=== PATIENT | female | born 1970 | race Caucasian/White ===

== ENCOUNTER 2019-11-01 19:58 | Observation (INO) | payer BC ==
--- NOTE | 2019-11-01 21:05 | EDM.PDOC ---
ED HPI GENERAL MEDICAL PROBLEM - General Chief Complaint: Neurological Problem Stated Complaint: MED[facility] Time Seen by Provider: 11/01/19 20:15 Source of Information: Reports: Patient, Family History Limitations: Reports: No Limitations - History of Present Illness INITIAL COMMENTS - FREE TEXT/NARRATIVE: This is a 48-year-old female who presents with concerns of altered mental status. She was significant dinner table with her when she felt an odd sensation in her mouth and started out the window, her said she was less responsive during this time but then started talking again for a couple minutes. However she then progressed to have about 3 minutes of altered mentation associated with increased tone of all extremities. This was followed by a period of confusion which lasted approximately 10 minutes before slowly clearing. She also lost continence. She had no generalized myoclonic movements. She has no history of seizure disorder. She denies any sleep deprivation. She has been decreasing her alcohol intake, and noticed that she is occasionally tremulous (one bottle daily to several glasses). She feels normal now. She reports no history of stroke, but does say that she believes she had some carotid calcification that was picked up on plain films during a trauma work-up. She has follow up planned for this. - Related Data Allergies Allergy/AdvReac Type Severity Reaction Status Date / Time No Known Allergies Allergy Verified 11/01/19 20:02 Home Meds: Home Meds Chlorthalidone 25 mg PO DAILY 11/01/19 [History] Labetalol [Normodyne] 200 mg PO BID 11/01/19 [History] Past Medical History Cardiovascular History: Reports: Hypertension - Past Surgical History Other Cardiovascular Surgeries/Procedures: is supposed to have a carotid duplex in [place] Social & Family History - Family History Family Medical History: Noncontributory - Tobacco Use Smoking Status *Q: Never Smoker - Caffeine Use Caffeine Use: Reports: Soda Other Caffeine Use: diet coke - Alcohol Use Days Per Week of Alcohol Use: 7 Number of Drinks Per Day: 1 Total Drinks Per Week: 7 - Recreational Drug Use Recreational Drug Use: No ED ROS GENERAL - Review of Systems Review Of Systems: See Below Constitutional: Reports: No Symptoms HEENT: Reports: No Symptoms Respiratory: Reports: No Symptoms Cardiovascular: Reports: No Symptoms Endocrine: Reports: No Symptoms GI/Abdominal: Reports: No Symptoms : Reports: No Symptoms Musculoskeletal: Reports: No Symptoms Skin: Reports: No Symptoms Neurological: Reports: Confusion, Seizure. Denies: Headache, Numbness, Difficulty Walking, Weakness Psychiatric: Reports: No Symptoms Hematologic/Lymphatic: Reports: No Symptoms Immunologic: Reports: No Symptoms - Physical Exam Exam: See Below Exam Limited By: No Limitations General Appearance: Alert, No Apparent Distress Ears: Normal External Exam Nose: Normal Inspection Throat/Mouth: Normal Inspection Head Exam: Atraumatic, Normocephalic Neck: Normal Inspection Respiratory/Chest: No Respiratory Distress, Lungs Clear GI/Abdominal: Soft, Non-Tender Neuro Exam (Abbreviated): Alert, Oriented, CN II-XII Intact, Normal Cognition, Normal Gait, Other (Speech is fluid, smile symmetric, extremity strength is 5/5 and symmetric. Finger-nose testing intact.). No: Sensory/Motor Deficit Back Exam: Normal Inspection Extremities: Normal Inspection Psychiatric: Normal Affect, Normal Mood Skin Exam: Warm, Dry Course - Vital Signs Last Recorded V/S: Last Vital Signs Temp 35.7 C L 11/01/19 20:12 Pulse 78 11/01/19 20:12 Resp 13 11/01/19 20:12 BP 164/86 H 11/01/19 20:12 Pulse Ox 98 11/01/19 20:12 - Orders/Labs/Meds Orders: Active Orders 24 hr Category Date Time Status Patient Status Manage Transfer [TRANSFER] Routine ADT 11/01/19 22:09 Active Peripheral IV Care [RC] . DIRECTED Care 11/01/19 21:47 Ordered Sodium Chloride 0.9% [Normal Saline] 1,000 ml Med 11/01/19 22:00 Active IV ASDIRECTED Sodium Chloride 0.9% [Saline Flush] Med 11/01/19 21:47 Ordered 10 ml FLUSH ASDIRECTED PRN Peripheral IV Insertion Adult [OM.PC] Routine Oth 11/01/19 21:47 Ordered Resuscitation Status Routine Resus Stat 11/01/19 22:12 Ordered Medication Orders Sodium Chloride (Normal Saline) 1,000 mls @ 100 mls/hr IV ASDIRECTED RAJIV Last Admin: 11/01/19 21:47 Dose: 100 mls/hr Sodium Chloride (Saline Flush) 10 ml FLUSH ASDIRECTED PRN PRN Reason: Keep Vein Open Labs: Laboratory Tests 11/01/19 Range/Units 20:41 Sodium 121 L (140-148) mmol/L Potassium 4.4 (3.6-5.2) mmol/L Chloride 84 L (100-108) mmol/L Carbon Dioxide 26 (21-32) mmol/L Anion Gap 15.4 H (5.0-14.0) mmol/L BUN 11 (7-18) mg/dL Creatinine 0.8 (0.6-1.0) mg/dL Est Cr Clr Drug Dosing 70.05 mL/min Estimated GFR (MDRD) > 60 (>60) Glucose 111 H (74-106) mg/dL Calcium 9.2 (8.5-10.1) mg/dL Meds: Medications Generic Name Dose Route Start Last Admin Trade Name Freq PRN Reason Stop Dose Admin Sodium Chloride 1,000 mls @ 100 mls/hr 11/01/19 22:00 11/01/19 21:47 Normal Saline IV 100 mls/hr ASDIRECTED RAJIV Administration Sodium Chloride 10 ml 11/01/19 21:47 Saline Flush FLUSH ASDIRECTED PRN Keep Vein Open - Re-Assessments/Exams Free Text/Narrative Re-Assessment/Exam: This is a 48-year-old woman who presents with concerns of altered mentation consistent with likely seizure. She reports a clear history of postictal state as well as urinary incontinence. On exam now she has normal vital signs. She is completely neurologically intact. Trigger is not clear, but perhaps related to decreased alcohol use. She currently is without any signs of withdrawal. We discussed being careful about how quickly she tapers off her alcohol use and seeking out treatment. She was recently started on a diuretic, we will check some electrolytes but with her normal mentation now unlikely this is the cause. Her blood sugar was normal for EMS. Anticipate discharge, no role for antiepileptic at this time for this first- time generalized seizure. 11/01/19 21:06 11/01/19 21:09 Free Text/Narrative Re-Assessment/Exam: Metabolic panel significant for sodium of 121. In the setting of seizure we have to assume this is the culprit. She is being admitted for further treatment and close sodium monitoring. 11/01/19 22:24 Departure - Departure Time of Disposition: 22:00 Disposition: Admitted As Inpatient 65 Clinical Impression: Hyponatremia, Seizure - Discharge Information Referrals: Brian Latif MD [Primary Care Provider] - Forms: ED Department Discharge Sepsis Event Note - Evaluation Sepsis Screening Result: No Definite Risk - Focused Exam Vital Signs: Vital Signs Temp Pulse Resp BP Pulse Ox 11/01/19 20:12 35.7 C L 78 13 164/86 H 98 Date Exam was Performed: 11/01/19 Time Exam was Performed: 22:24 - My Orders Last 24 Hours: My Active Orders 11/01/19 21:47 Peripheral IV Care [RC] . DIRECTED Sodium Chloride 0.9% [Saline Flush] 10 ml FLUSH ASDIRECTED PRN Peripheral IV Insertion Adult [OM.PC] Routine 11/01/19 22:00 Sodium Chloride 0.9% [Normal Saline] 1,000 ml IV ASDIRECTED - Assessment/Plan Last 24 Hours: My Active Orders 11/01/19 21:47 Peripheral IV Care [RC] . DIRECTED Sodium Chloride 0.9% [Saline Flush] 10 ml FLUSH ASDIRECTED PRN Peripheral IV Insertion Adult [OM.PC] Routine 11/01/19 22:00 Sodium Chloride 0.9% [Normal Saline] 1,000 ml IV ASDIRECTED
[2019-11-01] MEDS ORDERED: Sodium Chloride 0.9% 10 ML Syringe FLUSH PRN (21:47)
[2019-11-01] MEDS: Sodium Chloride 0.9% 1,000 ML IV SCH (21:47)
--- NOTE | 2019-11-01 22:40 | PCM.HP.2 ---
H&P History of Present Illness - General Date of Service: 11/01/19 Admit Problem/Dx: Admission Diagnosis/Problem Admission Diagnosis/Problem Hyponatremia Source of Information: Patient, Family () History Limitations: Reports: No Limitations - History of Present Illness Initial Comments - Free Text/Narative: chief complaint: seizure This is a 48-year-old female who presents with concerns of altered mental status. She was significant dinner table with her when she felt an odd sensation in her mouth and started out the window, her said she was less responsive during this time but then started talking again for a couple minutes. However she then progressed to have about 3 minutes of altered mentation associated with increased tone of all extremities. This was followed by a period of confusion which lasted approximately 10 minutes before slowly clearing. She also lost continence. She had no generalized myoclonic movements. She has no history of seizure disorder. She denies any sleep deprivation. She has been decreasing her alcohol intake, and noticed that she is occasionally tremulous (one bottle daily to several glasses). She feels normal now. She reports no history of stroke, but does say that she believes she had some carotid calcification that was picked up on plain films during a trauma work-up. She has follow up planned for this. Onset of Symptoms: Reports: Sudden Duration of Symptoms: Reports: Hour(s): Location: Reports: Generalized Severity: Moderate Improves with: Reports: None Worsens with: Reports: None Context: Reports: Other (new medication) Associated Symptoms: Reports: No Other Symptoms - Related Data Allergies/Adverse Reactions: Allergies Allergy/AdvReac Type Severity Reaction Status Date / Time No Known Allergies Allergy Verified 11/01/19 20:02 Home Medications: Home Meds Chlorthalidone 25 mg PO DAILY 11/01/19 [History] Labetalol [Normodyne] 200 mg PO BID 11/01/19 [History] Past Medical History Cardiovascular History: Reports: Hypertension - Past Surgical History Other Cardiovascular Surgeries/Procedures: is supposed to have a carotid duplex in [place] Social & Family History - Family History Family Medical History: Noncontributory - Tobacco Use Smoking Status *Q: Never Smoker - Caffeine Use Caffeine Use: Reports: Soda Other Caffeine Use: diet coke - Alcohol Use Days Per Week of Alcohol Use: 7 Number of Drinks Per Day: 1 Total Drinks Per Week: 7 - Recreational Drug Use Recreational Drug Use: No - Living Situation & Occupation Living situation: Reports: , 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 none since) Hematologic/Lymphatic: Reports: No Symptoms Immunologic: Reports: No Symptoms Exam - Exam Exam: See Below - Vital Signs Vital Signs: Last Vital Signs Temp 35.7 C L 11/01/19 20:12 Pulse 78 11/01/19 20:12 Resp 13 11/01/19 20:12 BP 164/86 H 11/01/19 20:12 Pulse Ox 98 11/01/19 20:12 Weight: 52.163 kg - Exam General: Alert, Oriented, Cooperative HEENT: PERRLA, Hearing Intact, Mucosa Moist & [place], Nares Patent, Normal Nasal Septum, Posterior Pharynx Clear, Conjunctiva Clear, EOMI, EACs Clear, TMs Clear Neck: Supple, Trachea Midline, 2 Lungs: Clear to Auscultation, Normal Respiratory Effort Cardiovascular: Regular Rate, Regular Rhythm, Normal S1, Normal S2 GI/Abdominal Exam: Normal Bowel Sounds, Soft, Non-Tender, No Organomegaly, No Distention (Female) Exam: Deferred Rectal (Female) Exam: Deferred Back Exam: Normal Inspection, Full Range of Motion Extremities: Normal Inspection, Normal Range of Motion, Non-Tender, No Pedal Edema, Normal Capillary Refill Peripheral Pulses: 2+: Radial (L), Radial (R) Skin: Warm, Dry, Intact Neurological: Cranial Nerves Intact, Reflexes Equal Bilateral Neuro Extensive - Mental Status: Alert, Oriented x3, Normal Mood/Affect, Normal Cognition Neuro Extensive - Motor, Sensory, Reflexes: CN II-XII Intact, Normal Reflexes Psychiatric: Alert, Normal Affect, Normal Mood - Patient Data Lab Results Last 24 hrs: Laboratory Results - last 24 hr 11/01/19 Range/Units 20:41 Sodium 121 L (140-148) mmol/L Potassium 4.4 (3.6-5.2) mmol/L Chloride 84 L (100-108) mmol/L Carbon Dioxide 26 (21-32) mmol/L Anion Gap 15.4 H (5.0-14.0) mmol/L BUN 11 (7-18) mg/dL Creatinine 0.8 (0.6-1.0) mg/dL Est Cr Clr Drug Dosing 70.05 mL/min Estimated GFR (MDRD) > 60 (>60) Glucose 111 H (74-106) mg/dL Calcium 9.2 (8.5-10.1) mg/dL Result Diagrams: 11/01/19 20:41 Sepsis Event Note - Evaluation Sepsis Screening Result: No Definite Risk - Focused Exam Vital Signs: Vital Signs Temp Pulse Resp BP Pulse Ox 11/01/19 20:12 35.7 C L 78 13 164/86 H 98 Date Exam was Performed: 11/01/19 Time Exam was Performed: 22:55 - Problem List (1) Hyponatremia SNOMED Code(s): 52915660 ICD Code: E87.1 - HYPO-OSMOLALITY AND HYPONATREMIA Status: Acute Priority : High Current Visit: Yes (2) Alcohol use SNOMED Code(s): 886254 ICD Code: Z72.89 - OTHER PROBLEMS RELATED TO LIFESTYLE Status: Acute Priority: Medium Current Visit: Yes (3) Cardiovascular disease Status: Acute Priority: Medium Current Visit: Yes (4) Dextrocardia SNOMED Code(s): 95959016 ICD Code: Q24.0 - DEXTROCARDIA Status: Acute Priority: Low Current Visit: Yes Problem List Initiated/Reviewed/Updated: Yes Orders Last 24hrs: Active Orders 24 hr Category Date Time Status Patient Status Manage Transfer [TRANSFER] Routine ADT 11/01/19 22:09 Active Peripheral IV Care [RC] . DIRECTED Care 11/01/19 21:47 Active Sodium Chloride 0.9% [Normal Saline] 1,000 ml Med 11/01/19 22:00 Active IV ASDIRECTED Sodium Chloride 0.9% [Saline Flush] Med 11/01/19 21:47 Active 10 ml FLUSH ASDIRECTED PRN Peripheral IV Insertion Adult [OM.PC] Routine Oth 11/01/19 21:47 Ordered Resuscitation Status Routine Resus Stat 11/01/19 22:12 Ordered Medication Orders Sodium Chloride (Normal Saline) 1,000 mls @ 100 mls/hr IV ASDIRECTED [facility] Last Admin: 11/01/19 21:47 Dose: 100 mls/hr Sodium Chloride (Saline Flush) 10 ml FLUSH ASDIRECTED PRN PRN Reason: Keep Vein Open Assessment/Plan Comment:: Assessment/Plan Comment:: ASSESSMENT AND PLAN: Hyponatremia This is a 48-year-old woman who presents with concerns of altered mentation consistent with likely seizure. She reports a clear history of postictal state as well as urinary incontinence. On exam now she has normal vital signs. She is completely neurologically intact. Trigger is not clear, but perhaps related to decreased alcohol use. She currently is without any signs of withdrawal. We discussed being careful about how quickly she tapers off her alcohol use and seeking out treatment. She was recently started on a diuretic, we will check some electrolytes but with her normal mentation now unlikely this is the cause. Her blood sugar was normal for EMS. Anticipate discharge, no role for antiepileptic at this time for this first- time generalized seizure. Re-Assessment/Exam: Metabolic panel significant for sodium of 121. In the setting of seizure we have to assume this is the culprit. She is being admitted for further treatment and close sodium monitoring HYPONATREMIA-causing symptoms of weakness and seizure like activity at home. -IV fluid Normal Saline at 100ml/hr -neuro check every 4 hours -IV fluids for hydration, reassess in a.m. -Cardiac monitoring -lab: Sodium every 4 hours at 0100 and 0500 CORONARY ARTERY DISEASE-Mrs. Moore has hypertension, Dextrocardia, mitral valve disease -continue Labetalol 200 mg po bid -hold/dc Chlorthalidone 25mg po daily Alcohol Use -CIWAA protocol MAINTENANCE ISSUES -DVT prophylaxis; scd -GI prophylaxis; PPI therapy -Han catheter; not indicated -Nutrition; regular diet -Nicotine dependence; not required CODE STATUS-FULL ADMISSION STATUS-this patient will be admitted to observation status, expect no more than a one night hospital stay for evaluation and management of problems as outlined above. DISPOSITION-anticipate discharge to home after the hospital stay. PRIMARY CARE PROVIDER-Dr. Brian Latif, [facility], [place], [place].
[2019-11-01] MEDS ORDERED: LORazepam 2 MG/ML SDV IV PRN (22:55)
[2019-11-01] MEDS ORDERED: Acetaminophen 325 MG Tab PO PRN (22:55)
[2019-11-01] MEDS ORDERED: oxyCODONE 5 MG Tab PO PRN (22:55)
[2019-11-01] MEDS ORDERED: Morphine 2 MG/ML Syringe IVPUSH PRN (22:55)
[2019-11-01] MEDS ORDERED: Temazepam 15 MG Cap PO PRN (22:55)
[2019-11-01] MEDS ORDERED: Albuterol 0.083% 2.5 MG/3 ML Neb Soln NEB PRN (22:55)
[2019-11-01] MEDS ORDERED: Albuterol/Ipratropium 3.0-0.5 MG/3 ML Neb Soln NEB PRN (22:55)
[2019-11-01] MEDS ORDERED: Diphtheria,Pertussis(Acell),Tetanus Vaccine 0.5 ML SDV IM ONE (23:11)
[2019-11-02] MEDS: Sodium Chloride 0.9% 1,000 ML IV SCH (07:27)
[2019-11-02] MEDS ORDERED: Labetalol 100 MG Tab PO SCH (09:00)
[2019-11-02] MEDS ORDERED: Diphtheria,Pertussis(Acell),Tetanus Vaccine 0.5 ML SDV IM ONE (10:00)
--- NOTE | 2019-11-02 13:35 | PCM.DCSUM1 ---
Discharge Summary - Hospital Course Brief History: 48-year-old female with history of essential hypertension and alcohol dependence who presented after a seizure at home. She was admitted for management of hyponatremia secondary to hypovolemia and hyperosmolality. Diagnosis: Stroke: No - Discharge Data Discharge Date: 11/02/19 Discharge Disposition: Home, Self-Care 01 Condition: Good - Referral to Home Health Primary Care Physician: Brian Latif MD - Discharge Diagnosis/Problem(s) (1) Hyponatremia SNOMED Code(s): 31179313 ICD Code: E87.1 - HYPO-OSMOLALITY AND HYPONATREMIA Status: Acute Priority : High (2) Seizure SNOMED Code(s): 49255508 ICD Code: R56.9 - UNSPECIFIED CONVULSIONS Status: Acute (3) HTN (hypertension), benign SNOMED Code(s): 28823183 ICD Code: I10 - ESSENTIAL (PRIMARY) HYPERTENSION Status: Chronic - Patient Summary/Data Hospital Course: Jaylan presented to the emergency room after a seizure at home. By the time she admitted to the hospital mental status seemed to be back to normal and she had stable vital signs. Laboratory studies revealed a sodium of 121. This was thought to be secondary to her hydrochlorothiazide which had been started about 1 week prior to the onset of the seizure. Other laboratory studies were unremarkable. The patient was admitted to the hospital for observation and IV fluid hydration. Overnight following admission there were no acute issues. Her sodium level did slowly improve with the normal saline infusion. She has not had any more seizures. I suspect the seizure was caused by the acute drop in sodium secondary to her chlorthalidone which had recently been started. By the time of discharge her sodium was up to 128 and she was feeling well. Her blood pressures during the hospital stay have all been in the normal range. I encouraged her to stop taking the chlorthalidone. She will continue to monitor her blood pressures at home. She will be coming back in 3 days to have her sodium rechecked 1 more time. She is stable and safe for discharge at this time. I do not believe that antiepileptic medication is indicated at this time as this was a provoked seizure. - Patient Instructions Diet: Regular Diet as Tolerated Activity: As Tolerated Showering/Bathing: May Shower Notify Provider of: Fever, Nausea and/or Vomiting Other/Special Instructions: 1. Stop taking chlorthalidone. 2. Drink plenty of fluids. There are no dietary restrictions. 3. Return to the Emergency Room entrance Friday morning and register for lab only to have your sodium rechecked. I will call you with the results when they are available. - Discharge Plan *PRESCRIPTION DRUG MONITORING PROGRAM REVIEWED*: Not Applicable *COPY OF PRESCRIPTION DRUG MONITORING REPORT IN PATIENT ASHANTI: Not Applicable Home Medications: Home Meds Labetalol [Normodyne] 200 mg PO BID 11/01/19 [History] Oxygen Therapy Mode: Room Air Patient Handouts: Seizure, Adult, [id number] Referrals: Brian Latif MD [Primary Care Provider] - (f/u as needed ) - Discharge Summary/Plan Comment DC Time >30 min.: No - Patient Data Vitals - Most Recent: Last Vital Signs Temp 35.7 C L 11/02/19 10:56 Pulse 100 11/02/19 12:01 Resp 16 11/02/19 12:01 BP 135/73 11/02/19 12:01 Pulse Ox 97 11/02/19 10:56 Weight - Most Recent: 52.163 kg I&O - Last 24 hours: Intake & Output 11/01/19 11/02/19 11/02/19 22:59 06:59 14:59 Intake Total 664 400 Balance 664 400 Lab Results - Last 24 hrs: Laboratory Results - last 24 hr 11/01/19 11/01/19 11/01/19 Range/Units 20:41 23:07 23:08 WBC 11.3 H (4.5-11.0) K/uL RBC 3.84 (3.30-5.50) M/uL Hgb 13.2 (12.0-15.0) g/dL Hct 38.1 (36.0-48.0) % MCV 99 H (80-98) fL MCH 34 H (27-31) pg MCHC 35 (32-36) % Plt Count 255 (150-400) K/uL Neut % (Auto) 76 H (36-66) % Lymph % (Auto) 11 L (24-44) % Stevens % (Auto) 12 H (2-6) % Eos % (Auto) 1 L (2-4) % Baso % (Auto) 0 (0-1) % Sodium 121 L (140-148) mmol/L Potassium 4.4 (3.6-5.2) mmol/L Chloride 84 L (100-108) mmol/L Carbon Dioxide 26 (21-32) mmol/L Anion Gap 15.4 H (5.0-14.0) mmol/L BUN 11 (7-18) mg/dL Creatinine 0.8 (0.6-1.0) mg/dL Est Cr Clr Drug Dosing 70.05 mL/min Estimated GFR (MDRD) > 60 (>60) Glucose 111 H (74-106) mg/dL Calcium 9.2 (8.5-10.1) mg/dL Free T4 (0.76-1.46) ng/dL TSH, Ultra Sensitive (0.358-3.740) uIU/mL Urine Color Yellow (YELLOW) Urine Appearance Clear (CLEAR) Urine pH 7.0 (5.0-8.0) Ur Specific [place] 1.015 (1.008-1.030) Urine Protein Negative (NEGATIVE) mg/dL Urine Glucose (UA) Negative (NEGATIVE) mg/dL Urine Ketones Trace H (NEGATIVE) mg/dL Urine Occult Blood Negative (NEGATIVE) Urine Nitrite Negative (NEGATIVE) Urine Bilirubin Negative (NEGATIVE) Urine Urobilinogen 0.2 (0.2-1.0) EU/dL Ur Leukocyte Esterase Negative (NEGATIVE) Urine RBC Not seen (0-5) Urine WBC 0-5 (0-5) Ur Epithelial Cells Not seen Amorphous Sediment Not seen Urine Bacteria Not seen Urine Mucus Not seen Ethyl Alcohol mg/dL 11/01/19 11/01/19 11/02/19 Range/Units 23:08 23:08 01:10 WBC (4.5-11.0) K/uL RBC (3.30-5.50) M/uL Hgb (12.0-15.0) g/dL Hct (36.0-48.0) % MCV (80-98) fL MCH (27-31) pg MCHC (32-36) % Plt Count (150-400) K/uL Neut % (Auto) (36-66) % Lymph % (Auto) (24-44) % Stevens % (Auto) (2-6) % Eos % (Auto) (2-4) % Baso % (Auto) (0-1) % Sodium 124 L (140-148) mmol/L Potassium (3.6-5.2) mmol/L Chloride (100-108) mmol/L Carbon Dioxide (21-32) mmol/L Anion Gap (5.0-14.0) mmol/L BUN (7-18) mg/dL Creatinine (0.6-1.0) mg/dL Est Cr Clr Drug Dosing mL/min Estimated GFR (MDRD) (>60) Glucose (74-106) mg/dL Calcium (8.5-10.1) mg/dL Free T4 (0.76-1.46) ng/dL TSH, Ultra Sensitive 6.152 H (0.358-3.740) uIU/mL Urine Color (YELLOW) Urine Appearance (CLEAR) Urine pH (5.0-8.0) Ur Specific [place] (1.008-1.030) Urine Protein (NEGATIVE) mg/dL Urine Glucose (UA) (NEGATIVE) mg/dL Urine Ketones (NEGATIVE) mg/dL Urine Occult Blood (NEGATIVE) Urine Nitrite (NEGATIVE) Urine Bilirubin (NEGATIVE) Urine Urobilinogen (0.2-1.0) EU/dL Ur Leukocyte Esterase (NEGATIVE) Urine RBC (0-5) Urine WBC (0-5) Ur Epithelial Cells Amorphous Sediment Urine Bacteria Urine Mucus Ethyl Alcohol 4 mg/dL 11/02/19 11/02/19 11/02/19 Range/Units 05:11 05:11 08:58 WBC 8.6 (4.5-11.0) K/uL RBC 3.65 (3.30-5.50) M/uL Hgb 12.6 (12.0-15.0) g/dL Hct 36.7 (36.0-48.0) % MCV 101 H (80-98) fL MCH 35 H (27-31) pg MCHC 34 (32-36) % Plt Count 226 (150-400) K/uL Neut % (Auto) 71 H (36-66) % Lymph % (Auto) 14 L (24-44) % Stevens % (Auto) 14 H (2-6) % Eos % (Auto) 2 (2-4) % Baso % (Auto) 1 (0-1) % Sodium 127 L (140-148) mmol/L Potassium 4.0 (3.6-5.2) mmol/L Chloride 91 L (100-108) mmol/L Carbon Dioxide 26 (21-32) mmol/L Anion Gap 14.0 (5.0-14.0) mmol/L BUN 8 (7-18) mg/dL Creatinine 0.6 (0.6-1.0) mg/dL Est Cr Clr Drug Dosing 93.40 mL/min Estimated GFR (MDRD) > 60 (>60) Glucose 92 (74-106) mg/dL Calcium 8.8 (8.5-10.1) mg/dL Free T4 0.95 (0.76-1.46) ng/dL TSH, Ultra Sensitive (0.358-3.740) uIU/mL Urine Color (YELLOW) Urine Appearance (CLEAR) Urine pH (5.0-8.0) Ur Specific [place] (1.008-1.030) Urine Protein (NEGATIVE) mg/dL Urine Glucose (UA) (NEGATIVE) mg/dL Urine Ketones (NEGATIVE) mg/dL Urine Occult Blood (NEGATIVE) Urine Nitrite (NEGATIVE) Urine Bilirubin (NEGATIVE) Urine Urobilinogen (0.2-1.0) EU/dL Ur Leukocyte Esterase (NEGATIVE) Urine RBC (0-5) Urine WBC (0-5) Ur Epithelial Cells Amorphous Sediment Urine Bacteria Urine Mucus Ethyl Alcohol mg/dL 11/02/19 Range/Units 13:00 WBC (4.5-11.0) K/uL RBC (3.30-5.50) M/uL Hgb (12.0-15.0) g/dL Hct (36.0-48.0) % MCV (80-98) fL MCH (27-31) pg MCHC (32-36) % Plt Count (150-400) K/uL Neut % (Auto) (36-66) % Lymph % (Auto) (24-44) % Stevens % (Auto) (2-6) % Eos % (Auto) (2-4) % Baso % (Auto) (0-1) % Sodium 128 L (140-148) mmol/L Potassium (3.6-5.2) mmol/L Chloride (100-108) mmol/L Carbon Dioxide (21-32) mmol/L Anion Gap (5.0-14.0) mmol/L BUN (7-18) mg/dL Creatinine (0.6-1.0) mg/dL Est Cr Clr Drug Dosing mL/min Estimated GFR (MDRD) (>60) Glucose (74-106) mg/dL Calcium (8.5-10.1) mg/dL Free T4 (0.76-1.46) ng/dL TSH, Ultra Sensitive (0.358-3.740) uIU/mL Urine Color (YELLOW) Urine Appearance (CLEAR) Urine pH (5.0-8.0) Ur Specific [place] (1.008-1.030) Urine Protein (NEGATIVE) mg/dL Urine Glucose (UA) (NEGATIVE) mg/dL Urine Ketones (NEGATIVE) mg/dL Urine Occult Blood (NEGATIVE) Urine Nitrite (NEGATIVE) Urine Bilirubin (NEGATIVE) Urine Urobilinogen (0.2-1.0) EU/dL Ur Leukocyte Esterase (NEGATIVE) Urine RBC (0-5) Urine WBC (0-5) Ur Epithelial Cells Amorphous Sediment Urine Bacteria Urine Mucus Ethyl Alcohol mg/dL Med Orders - Current: Current Medications Acetaminophen (Tylenol) 650 mg PO Q4H PRN PRN Reason: Pain (Mild 1-3)/fever Albuterol (Proventil Neb Soln) 2.5 mg NEB Q4H PRN PRN Reason: Shortness Of Breath/wheezing Albuterol/Ipratropium (Duoneb 3.0-0.5 Mg/3 Ml) 3 ml NEB QID PRN PRN Reason: Shortness Of Breath/wheezing Sodium Chloride (Normal Saline) 1,000 mls @ 100 mls/hr IV ASDIRECTED [facility] Last Admin: 11/02/19 07:27 Dose: 100 mls/hr Labetalol HCl (Normodyne) 200 mg PO BID [facility] Last Admin: 11/02/19 09:25 Dose: 200 mg Lorazepam (Ativan) 1 mg IV Q6H PRN PRN Reason: Nausea/Vomiting Morphine Sulfate (Morphine) 2 mg IVPUSH Q2H PRN PRN Reason: Pain (severe 7-10) Oxycodone HCl (Oxycodone) 5 mg PO Q4H PRN PRN Reason: Pain (moderate 4-6) Sodium Chloride (Saline Flush) 10 ml FLUSH ASDIRECTED PRN PRN Reason: Keep Vein Open Temazepam (Restoril) 15 mg PO BEDTIME PRN PRN Reason: Sleep Discontinued Medications Diphtheria/Tetanus/Acell Pertussis (Adacel) 0.5 ml IM .ONCE ONE Stop: 11/02/19 10:01 Last Admin: 11/02/19 12:56 Dose: Not Given - Exam Quality Assessment: Denies: Supplemental Oxygen General: Reports: Alert, Oriented, Cooperative, No Acute Distress Lungs: Reports: Normal Respiratory Effort Cardiovascular: Reports: Regular Rate, Regular Rhythm GI/Abdominal Exam: Soft, No Distention Extremities: No Pedal Edema Psy/Mental Status: Reports: Alert, Normal Affect
== END 2019-11-02 14:00 | disposition home or self-care (01) ==
LOC: JP.ED 19:58 → JP.MS 22:09
PROVIDERS: ADMIT Internal Medicine; ATTEND Internal Medicine
DX: E87.1 Hypo-osmolality and hyponatremia (principal); R56.9 Unspecified convulsions; E86.1 Hypovolemia; I10 Essential (primary) hypertension; Q24.0 Dextrocardia; I25.10 Atherosclerotic heart disease of native coronary artery without angina pectoris; I05.9 Rheumatic mitral valve disease, unspecified; Z79.899 Other long term (current) drug therapy; Z72.89 Other problems related to lifestyle; Y90.0 Blood alcohol level of less than 20 mg/100 ml
CPT/HCPCS: 36415; 80048; 80307; 81001; 84295; 84439; 84443; 85025; 96360; 96361; 99285; A9270; G0378; J7030

== ENCOUNTER 2021-11-14 15:39 | Emergency (ER) | payer BC ==
[2021-11-14] MEDS ORDERED: Ondansetron 4 MG/2 ML SDV IVPUSH ONE (16:17)
[2021-11-14] MEDS ORDERED: Lactated Ringers 1,000 ML IV ONE ×2 (16:17→16:46)
[2021-11-14] MEDS ORDERED: Pantoprazole 40 MG Vial IVPUSH ONE (16:44)
[2021-11-14 17:44] LABS: CORONAVIRUS COVID-19 NAA NEGATIVE (NEGATIVE)
[2021-11-14] MEDS ORDERED: Octreotide 100 MCG/ML SDV IVPUSH ONE (19:39)
[2021-11-14] MEDS ORDERED: Sodium Chloride 0.9% 1,000 ML IV SCH (19:45)
[2021-11-14] MEDS ORDERED: Pantoprazole 80 MG in Sodium Chloride 0.9% 100 ML IV SCH (19:45)
== END 2021-11-14 20:18 ==
LOC: JP.ED 15:39
DX: K92.2 Gastrointestinal hemorrhage, unspecified (principal); I10 Essential (primary) hypertension; E87.1 Hypo-osmolality and hyponatremia; Z20.822 Contact with and (suspected) exposure to COVID-19
CPT/HCPCS: 0241U; 36415; 84295; 85018; 86850; 86900; 86901; 96374; 96375; 96376; 99284; 99285-25; C9113; J2354-JA; J2405; J3490; J7030; J7120